=== PATIENT | female | born 1980 | race Caucasian/White ===

== ENCOUNTER 2016-12-26 11:49 | Emergency (ER) | payer OTHER ==
[~2016-12-26] VITALS: Ht 152.4 cm; Wt 47.7 kg
[2016-12-26 11:54] VITALS: BP 109/59
[2016-12-26] MEDS ORDERED: benadryl PO (11:58)
[2016-12-26] MEDS ORDERED: VALT1TAB PO (12:21)
[2016-12-26] MEDS ORDERED: valACYclovir HCL 500 MG TAB PO ONE (12:30)
== END 2016-12-26 12:30 | disposition home or self-care (01) ==
LOC: M ED 11:49
DX: B02.9 Zoster without complications (principal)

== ENCOUNTER → 2016-12-31 | Outpatient (REF) | payer OTHER ==
[~2016-12-31] MED LIST: VALT1TAB PO; benadryl PO
[2016-12-31 14:37] LABS: ALBUMIN/GLOBULIN RATIO 1.29 (1.00-1.93); ALKALINE PHOSPHATASE 46 U/L (45-117); ALT/SGPT 25 U/L (12-78); ANION GAP 4 MEQ/L (8-16); AST/SGOT 14 U/L (15-37); BILIRUBIN,TOTAL 0.7 MG/DL (0.2-1.0); BLOOD UREA NITROGEN 15 MG/DL (7-18); CALCIUM LEVEL 8.9 MG/DL (8.5-10.1); CARBON DIOXIDE LEVEL 27 MEQ/L (21-32); CHLORIDE LEVEL 107 MEQ/L (98-107); CHOLESTEROL LEVEL 151 MG/DL (<200); CREATININE FOR GFR 0.72 MG/DL (0.55-1.02); GLOMERULAR FILTRATION RATE > 60.0 (>60); GLUCOSE, FASTING 81 MG/DL (70-105); POTASSIUM SERUM 4.2 MEQ/L (3.5-5.1); SODIUM LEVEL 138 MEQ/L (136-145); TOTAL PROTEIN 7.1 GM/DL (6.4-8.2); TRIGLYCERIDES LEVEL 95 MG/DL (<150)
[2016-12-31 14:40] LABS: MEAN CORPUSCULAR HGB CONC 33.2 g/dl (32.0-36.5); MEAN CORPUSCULAR VOLUME 84.2 fl (80.0-96.0); WHITE BLOOD COUNT 4.6 K/mm3 (4.0-10.0)
== END ==
LOC: M LAB REF 14:01
PROVIDERS: ATTEND Nurse Practitioner Family
DX: Z13.29 Encounter for screening for other suspected endocrine disorder (principal); Z13.0 Encounter for screening for diseases of the blood and blood-forming organs and certain disorders involving the immune mechanism

== ENCOUNTER 2020-03-29 06:28 | Day surgery (SDC) | payer BC, OTHER ==
[~2020-03-29] VITALS: Ht 152.4 cm; Wt 51.2 kg
[2020-03-29] VITALS (7 sets, daily range): BP systolic 97–111; BP diastolic 52–61
[2020-03-29] MEDS ORDERED: NS 1,000 ML IV ONE (07:00)
[2020-03-29 07:31] LABS: BASO # 0.1 10^3/uL (0.0-0.2); BASO % 0.8 % (0.0-1.0); EOS # 0.1 10^3/uL (0.0-0.5); EOS % 1.3 % (0.0-3.0); HEMATOCRIT 26.5 % (36.0-47.0); HEMOGLOBIN 7.6 g/dl (12.0-15.5); LYMPH # 1.9 10^3/uL (1.5-5.0); MEAN CORPUSCULAR HEMOGLOBIN 19.8 pg (27.0-33.0); MEAN CORPUSCULAR HGB CONC 28.7 g/dl (32.0-36.5); MONO # 0.4 10^3/uL (0.0-0.8); NEUTROPHILS # 3.6 10^3/uL (1.5-8.5); NEUTROPHILS % 59.6 % (36.0-66.0); PLATELET COUNT, AUTOMATED 259 10^3/uL (150-450); RED BLOOD COUNT 3.84 10^6/uL (4.00-5.40)
[2020-03-29 07:42] LABS: INR 1.11; PROTHROMBIN TIME 14.5 SECONDS (12.5-14.3)
[2020-03-29 07:43] LABS: PARTIAL THROMBOPLASTIN TIME 29.1 SECONDS (24.2-38.5)
[2020-03-29 07:50] LABS: ALBUMIN 3.7 GM/DL (3.2-5.2); BILIRUBIN,DIRECT 0.1 MG/DL (0.0-0.2); BILIRUBIN,TOTAL 0.4 MG/DL (0.2-1.0); TOTAL PROTEIN 7.1 GM/DL (6.4-8.2)
--- NOTE | 2020-03-29 08:48 | REPVR ---
PROCEDURE INFORMATION: Exam: US Pelvis Complete, Transabdominal and US Pelvis, Transvaginal Exam date and time: 03/29/2020 8:10 AM Age: 39 years old Clinical indication: Menstruation abnormalities; Excessive menstruation; Additional info: Very heavy bleeding TECHNIQUE: Imaging protocol: Real-time transabdominal and transvaginal pelvic ultrasound (complete) with image documentation. Transvaginal imaging was used for better evaluation of the endometrium and adnexa. COMPARISON: No relevant prior studies available. FINDINGS: Uterus/cervix: Uterus measures 10.3 x 4.8 x 6.4 cm. There is a 1.5 x 1.2 x 1.6 cm hypoechoic focus within the posterior uterine body, most consistent with a small intramural or subserosal fibroid. No other discrete myometrial masses. The endometrium demonstrates a triple line pattern and measures 1.4 cm in thickness. There is a pedunculated mass within the endometrial cavity of the lower uterine segment which extends into the endocervical canal with Doppler flow and a feeding vascular pedicle. This mass measures 1.2 x 1.5 x 5.8 cm. Right adnexa: Right ovary measures 3.8 x 1.8 x 1.8 cm and is unremarkable. Duplex blood flow present within the right ovary. No adnexal masses. Left adnexa: Left ovary measures 1.7 x 1.4 x 1.2 cm and is unremarkable. Duplex blood flow present within the left ovary. No adnexal masses. Intraperitoneal space: No evidence of free fluid. Urinary bladder: Unremarkable. IMPRESSION: 1. Small posterior uterine fibroid. 2. Triple line endometrial pattern measuring 1.4 cm in thickness. There is a pedunculated mass within the endometrial cavity of the lower uterine segment which extends into the endocervical canal measuring 1.2 x 1.5 x 5.8 cm. There is Doppler flow within this mass with a feeding vascular pedicle. This is consistent with a large endometrial polypoid lesion. Recommend [employer]MENT [employer] evaluation. Electronically signed by: Bryce Oliveira On 03/29/2020 08:48:37 AM
[2020-03-29] MEDS ORDERED: VITMTA PO (10:17)
[2020-03-29] MEDS ORDERED: IBUP200C28 PO (10:17)
[2020-03-29] MEDS ORDERED: propofoL 200 MG/20 ML VIAL As Ordered ONE (13:06)
[2020-03-29] MEDS ORDERED: KETOROLAC 60MG 2ML VIAL As Ordered ONE (13:06)
[2020-03-29] MEDS ORDERED: fentaNYL 100 MCG/2 ML INJECTION (J3010) As Ordered ONE (13:06)
[2020-03-29] MEDS ORDERED: MIDAZOLAM INJ 2MG/2ML VIAL (J2250 PER 1MG) As Ordered ONE (13:06)
[2020-03-29] MEDS ORDERED: SUCCINYLCHOLINE 100 MG/5 ML SYRINGE (J0330) As Ordered ONE (13:06)
[2020-03-29] MEDS ORDERED: ROCURONIUM BROMIDE 50 MG/5 ML VIAL As Ordered ONE (13:06)
[2020-03-29] MEDS ORDERED: LIDOCAINE 2% 100MG/5ML SDV (FOR ANES.) As Ordered ONE (13:06)
[2020-03-29] MEDS ORDERED: ONDANSETRON 4MG/2ML VIAL As Ordered ONE (13:07)
[2020-03-29] MEDS ORDERED: dexameTHASONE 4 MG/ML 1ML VIAL (J1100 PER 1MG) As Ordered ONE (13:07)
[2020-03-29] MEDS ORDERED: ACETAMINOPHEN 1000MG 100ML IV BTL (OFIRMEV) (J0131 PER 10MG) As Ordered ONE (14:05)
[2020-03-29] MEDS ORDERED: PHENYLephrine HCL 500 MCG/5 ML (100MCG/ML) SYRINGE (J2370) As Ordered ONE (14:05)
--- NOTE | 2020-03-29 14:41 | ROOPDOC ---
[facility] Report Of Operation Report of Operation DATE OF PROCEDURE: 03/29/20 PREPROCEDURE DIAGNOSES: Endometrial polyp, menorrhagia. POSTPROCEDURE DIAGNOSES: same. PROCEDURE: hysteroscopy, dilation and curettage, polypectomy. SURGEON: Lynnette Goyal MD ANESTHESIA: General via LMA. URINE OUTPUT: 50 CC ESTIMATED BLOOD LOSS: Approximately 50 mL. COMPLICATIONS: none FINDINGS: Large endometrial polyp 4-5 cm in length protruding through the cervical os. Polyp had a narrow stalk that attached at the fundus. Otherwise, normal endometrial cavity. PROCEDURE NOTE: Pt taken to the operating room where general anesthesia via LMA was induced. The patient was prepped and draped in a sterile manner in the dorsal lithotomy position. The bladder was emptied with a catheter. A speculum was placed. The anterior lip of the cervix was grasped with a tenaculum. A large endometrial polyp was noted protruding through the cervical os. There was active bleeding observed. An operative hysteroscope using normal saline as the distension media was inserted through the internal os. Visualization of the endometrial cavity revealed the findings noted above. Polyp forceps were used to grasp the polyp and twist it off at its base. Sharp curettage was performed. The bleeding ceased immediately after removal of the polyp. All instruments were removed. Sponge and instrument counts correct. LYNNETTE GOYAL MD Mar 29, 2020 14:41
[2020-03-29] MEDS ORDERED: MEPERIDINE INJ 25 MG/ML VIAL (J2175) As Ordered ONE (14:43)
[2020-03-29] MEDS ORDERED: oxyCODONE 5MG TAB As Ordered ONE (14:43)
[2020-03-29] MEDS ORDERED: ACETAMINOPHEN 500 MG TAB PO ONE (14:45)
[2020-03-29] MEDS ORDERED: oxyCODONE 5MG TAB PO PRN (14:45)
[2020-03-29] MEDS ORDERED: LR 1,000 ML IV SCH ×2 (14:45)
[2020-03-29] MEDS ORDERED: fentaNYL 100 MCG/2 ML INJECTION (J3010) IV PRN (14:45)
[2020-03-29] MEDS ORDERED: ONDANSETRON 4MG/2ML VIAL IV PRN (14:45)
[2020-03-29] MEDS ORDERED: METOCLOPRAMIDE INJ 10MG/2ML VIAL (J2765 PER 1) IV PRN (14:45)
[2020-03-29] MEDS: MEPERIDINE INJ 25 MG/ML VIAL (J2175) IV PRN ×2 (14:49→14:59)
== END 2020-03-29 16:45 | disposition home or self-care (01) ==
LOC: M ED 06:28 → M SDC 09:30
PROVIDERS: ATTEND Specialist
DX: N84.0 Polyp of corpus uteri (principal); N93.9 Abnormal uterine and vaginal bleeding, unspecified
CPT/HCPCS: 36430; 58558; 76830; 76856; 80047; 80076; 84702; 85025; 85610; 85730; 86850; 86900; 86901; 86920; 88305; 93041; 93976; 94760; 96360; 99285; J0131; J0330; J1100; J1885; J2175; J2250; J2370; J2405; J3010; P9016; U0002

== ENCOUNTER → 2020-11-08 | Outpatient (CLI) | payer BC ==
[~2020-11-08] MED LIST changes: +IBUP200C28 PO; +VITMTA PO
[2020-11-08 16:52] LABS: BASO # 0.1 10^3/uL (0.0-0.2); BASO % 0.7 % (0.0-1.0); EOS # 0.1 10^3/uL (0.0-0.5); EOS % 0.7 % (0.0-3.0); HEMATOCRIT 33.4 % (36.0-47.0); HEMOGLOBIN 9.9 g/dl (12.0-15.5); MEAN CORPUSCULAR HEMOGLOBIN 21.3 pg (27.0-33.0); MEAN CORPUSCULAR HGB CONC 29.6 g/dl (32.0-36.5); MEAN CORPUSCULAR VOLUME 71.8 fl (80.0-96.0); MONO # 0.4 10^3/uL (0.0-0.8); MONO % 5.7 % (2.0-8.0); NEUTROPHILS # 4.5 10^3/uL (1.5-8.5); NEUTROPHILS % 64.6 % (36.0-66.0); PLATELET COUNT, AUTOMATED 236 10^3/uL (150-450); RED BLOOD COUNT 4.65 10^6/uL (4.00-5.40)
[2020-11-08 17:24] LABS: ALBUMIN 4.1 GM/DL (3.2-5.2); ALT/SGPT 24 U/L (12-78); BILIRUBIN,TOTAL 0.4 MG/DL (0.2-1.0); BLOOD UREA NITROGEN 23 MG/DL (7-18); CALCIUM LEVEL 9.5 MG/DL (8.5-10.1); CARBON DIOXIDE LEVEL 28 MEQ/L (21-32); CHLORIDE LEVEL 104 MEQ/L (98-107); CREATININE FOR GFR 0.58 MG/DL (0.55-1.30); GLOMERULAR FILTRATION RATE > 60.0 (>60); GLUCOSE, FASTING 83 MG/DL (70-100); POTASSIUM SERUM 3.8 MEQ/L (3.5-5.1); SODIUM LEVEL 138 MEQ/L (136-145); TOTAL PROTEIN 7.5 GM/DL (6.4-8.2)
== END ==
LOC: M LAB 15:48
PROVIDERS: ATTEND Physician Assistant
DX: L60.2 Onychogryphosis (principal)

== ENCOUNTER → 2022-04-24 | Outpatient (REF) | payer BC | LOC: M LAB REF 17:30 | PROVIDERS: ATTEND Nurse Practitioner Adult Health | DX: J02.9 Acute pharyngitis, unspecified (principal) ==